=== PATIENT | female | born 1985 | race Caucasian/White ===

== ENCOUNTER 2016-07-25 16:28 | Inpatient (IN) | payer BC, OTHER ==
[~2016-07-25] VITALS: Ht 160 cm; Wt 77.1 kg
[2016-07-25] VITALS (33 sets, daily range): BP systolic 119–183; BP diastolic 74–150; PULSE 54–157; RESP 18–20; TEMP 97.7–98.6
[~2016-07-25 16:28] MED LIST: AZAT50 PO; DIPHTH/TETANUS/ACEL PERTUSSIS (BOOSTER) 0.5 ML VIAL/PFS IM ONE; MEASLES, MUMPS, RUBELLA VACCINE 0.5 ML VIAL SQ ONE; PRED10 PO; SYNT25TA
[2016-07-25] MEDS ORDERED: CITRIC ACID-SODIUM CITRATE LIQ 30 ML UDC PO SCH (17:15)
[2016-07-25] MEDS ORDERED: MINERAL OIL 10 ML VIAL TOPICAL PRN (17:15)
[2016-07-25] MEDS ORDERED: OXYTOCIN 30 UNITS-500ML PREMIX 500 ML IV ONE (17:15)
[2016-07-25] MEDS ORDERED: LIDOCAINE HCL 1% 50 ML VIAL I-DERMAL PRN (17:15)
[2016-07-25] MEDS ORDERED: LIDOCAINE HCL 1% 50 ML VIAL INFIL PRN (17:15)
[2016-07-25] MEDS ORDERED: LACTATED RINGER'S 1000 ML INJ 1,000 ML IV PRN (17:15)
[2016-07-25] MEDS ORDERED: SODIUM CHLORID 0.9% 500 ML INJ 500 ML IV PRN (17:15)
--- NOTE | 2016-07-25 17:32 | HHI.HP ---
History & Physical H&P OB ED Note (Detail) Patient Name: Zakiya Benz Unit Number: [id number] Date of : 1985 Patient Status: Admitted Inpatient Attending Doctor: Juaquin Artis MD HPI HPI Chief Complaint Contractions Date Seen: Jul 25, 2016 Time Seen: 17:00 Travel History International Travel<30 Days: No Contact w/Intl Traveler<30Days: No Known Affected Area: No History of Present Illness HPI 30-year-old 1 with an EDC of August 09 who is 37-6/7 weeks gestation and has been having contractions throughout the day which have progressed from every 13 minutes to every 4 minutes. She denies leakage of fluid, bleeding or discharge. Para: 0 : 1 History (Limited) History Past Medical History Narrative Medical [facility] Obstetric History Obstetric History Primigravida with uncomplicated care by Dr. artis O-, AST negative, RPR nonreactive, rubella immune, hepatitis B nonreactive, 1 hour 90, GBS negative Past Surgical History Narrative Surgical Bunion surgery Family History Family History: Negative Social History Alcohol Use: No Tobacco Use: No Substance Abuse: No Allergies-Medications Allergies-Medications (Allergen,Severity, Reaction): Coded Allergies: No Known Allergies (Verified , 04/20/10) Home Meds Reported Medications Levothyroxine Sodium (Synthroid)25 Mcg Tab UNKNOWN DOSE 04/20/10 Azathioprine (Imuran)50 Mg Tab25 Mg PO DAILY 04/20/10 Prednisone (Deltasone)10 Mg Tab10 Mg PO BID 04/20/10 ROS Review of Systems Except as stated in HPI: all other systems reviewed are Neg Physical Exam Physical Exam Narrative GENERAL: Well-nourished, well-developed patient. SKIN: Warm and dry. HEAD: Normocephalic and atraumatic. EYES: No scleral icterus. No injection or drainage. ENT: No nasal drainage noted. Mucous membranes pink. Airway patent. NECK: Supple, trachea midline. No JVD. CARDIOVASCULAR: Regular rate and rhythm without murmurs, gallops, or rubs. RESPIRATORY: Breath sounds equal bilaterally. No accessory muscle use. ABDOMEN/GI: Abdomen soft, non-tender, bowel sounds present, no rebound, no guarding Gravid to [-] weeks size Fundal Height: [37-] GENITOURINARY: External Genitalia: intact and normal in appearance BUS glands: [Negative-] Cervix: [-] Dilatation: [-4-5] Effacement: [-100] Station: [0-] Presentation: [-Vertex] Membranes: [intact ] Uterine Contractions: [Every 4-] FHT's: Category: [-] Baseline: [-] Reactive: [-] Variability: [-] Decels: [-] EXTREMITIES: No cyanosis or edema. BACK: Nontender without obvious deformity. No CVA tenderness. NEUROLOGICAL: Awake and alert. Motor and sensory grossly within normal limits. Five out of 5 muscle strength in all muscle groups. Normal speech. Data Data Data Orders Admit To Inpatient (07/25/16 ) Code Status (07/25/16 17:15) Vital Signs (Adult) .Per protocol (07/25/16 17:15) Heart (07/25/16 17:15) Amnioinfusion (07/25/16 17:15) Urinary Catheter Management .ONCE (07/25/16 17:15) Lactated Ringer's 1000 Ml Inj (Lr 1000 M (07/25/16 17:15) Lactated Ringer's 1000 Ml Inj (Lr 1000 M (07/25/16 17:15) Sodium Chlorid 0.9% 500 Ml Inj (Ns 500 M (07/25/16 17:15) Sodium Chlor 0.9% 1000 Ml Inj (Ns 1000 M (07/25/16 17:35) Lidocaine 1% Inj (50 Ml) (Xylocaine 1% I (07/25/16 17:15) Citric Acid-Sodium Citrate Liq (Bicitra (07/25/16 17:15) Fentanyl Inj (Fentanyl Inj) (07/25/16 17:15) Fentanyl Inj (Fentanyl Inj) (07/25/16 17:15) Complete Blood Count With Diff (07/25/16 17:15) Hold Clot (07/25/16 17:15) Abo/Rh Blood Type (07/25/16 17:15) Urinalysis - C+S If Indicated (07/25/16 17:15) Resp Oxygen Non Rebreathe Mask (07/25/16 ) ^ Epidural / Intrathecal Infus (07/25/16 17:15) Oxytocin 30 Units-500ml Premix (Pitocin (07/25/16 17:15) Lidocaine 1% Inj (50 Ml) (Xylocaine 1% I (07/25/16 17:15) Light Mineral Oil (Muri-Lube Oil) (07/25/16 17:15) Inpatient Certification (07/25/16 ) Ob (2e) Additional Admit Info (07/25/16 17:19) MDM MDM Medical Record Reviewed: Yes Narrative Course / MDM Assessment: Primigravida at 37-6/7 weeks' gestation in early active labor Plan: Admit for labor management. Mild blood pressure elevation in triage possibly related to contraction activity. Denilson Smyth MD Jul 25, 2016 17:29 Denilson Smyth MD Jul 25, 2016 17:32
[2016-07-25] MEDS ORDERED: SODIUM CHLOR 0.9% 1000 ML INJ 1,000 ML IV PRN (17:35)
[2016-07-25 18:08] LABS: AUTOMATED NEUTROPHIL # 12.8 TH/MM3 (1.8-7.7); BASOPHIL % 0.2 % (0.0-2.0); EOSINOPHIL % 0.1 % (0.0-4.0); HEMATOCRIT 34.6 % (35.0-46.0); HEMO FLAGS DIFF FINAL; LYMPHOCYTE # 1.9 TH/MM3 (1.0-4.8); MEAN CELL VOLUME 86.2 FL (80.0-100.0); MEAN CORPUSCULAR HEMOGLOBIN 27.7 PG (27.0-34.0); MEAN CORPUSCULAR HGB CONC 32.1 % (32.0-36.0); MONO % 5.1 % (0.0-8.0); NEUT % 82.6 % (16.0-70.0); PLATELET COUNT 104 TH/MM3 (150-450); RED BLOOD COUNT 4.02 MIL/MM3 (4.00-5.30); RED CELL DISTRIBUTION WIDTH 13.2 % (11.6-17.2); WHITE BLOOD COUNT 15.5 TH/MM3 (4.0-11.0)
[2016-07-25 18:26] LABS: BACTERIA, URINE RARE /hpf; BLOOD, URINE SMALL (NEG); COMMENT (UR) CULT NOT INDICATED; CULTURE IF INDICATED CULT NOT INDICATED; GLUCOSE,URINE NEG (NEG); KETONE, URINE NEG (NEG); MUCUS URINE FEW /lpf (OCC); NITRITE,URINE NEG (NEG); SQUAMOUS EPITHELIAL CELL URINE 3 /hpf (0-5); URINE COLOR LIGHT-YELLOW (YELLW/STRAW)
[2016-07-25 19:49] LABS: ANION GAP 9 MEQ/L (5-15); AST (GOT) 22 U/L (15-37); BICARBONATE 21.1 MEQ/L (21.0-32.0); BLOOD UREA NITROGEN 11 MG/DL (7-18); CHLORIDE 107 MEQ/L (98-107); GLOMERULAR FILTRATION RATE 83 ML/MIN (>89); POTASSIUM 4.1 MEQ/L (3.5-5.1); SODIUM (NA) 137 MEQ/L (136-145)
[2016-07-25] MEDS ORDERED: MAGNESIUM SULFATE 4 GM PREMIX 100 ML ONE (19:50)
[2016-07-25] MEDS ORDERED: MAGNESIUM SULFATE 40 GM PREMIX 1,000 ML ONE (19:50)
[2016-07-25 19:52] LABS: ALKALINE PHOSPHATASE 181 U/L (45-117); ALT (GPT) 16 U/L (10-53); TOTAL BILIRUBIN ADULT 0.4 MG/DL (0.2-1.0)
[2016-07-25] MEDS ORDERED: NIFEdipine 10 MG CAP PO SCH (20:25)
[2016-07-25] MEDS ORDERED: NIFEdipine 10 MG CAP ONE (20:29)
[2016-07-25] MEDS: MAGNESIUM SULFATE 40 GM PREMIX 1,000 ML IV SCH (20:44)
[2016-07-25] MEDS: LACTATED RINGER'S 1000 ML INJ 1,000 ML IV SCH (20:44)
[2016-07-25] MEDS ORDERED: CALCIUM GLUCONATE 10% 1 GM/10 ML VIAL IV PRN (20:45)
[2016-07-25] MEDS ORDERED: oxyCODONE/ACETAMINOPHEN 5 MG/325 MG TAB PO PRN (20:45)
[2016-07-25] MEDS ORDERED: DOCUSATE SODIUM 50 MG/SENNA 8.6 MG TAB PO PRN (20:45)
[2016-07-25] MEDS ORDERED: MAGNESIUM SULFATE 4 GM PREMIX 100 ML IV ONE (20:45)
[2016-07-25] MEDS ORDERED: BENZOCAINE 20% TOPICAL SPRAY 60 ML CAN TOPICAL PRN (20:45)
[2016-07-25] MEDS ORDERED: ZOLPIDEM TARTRATE 5 MG TAB PO PRN (20:45)
[2016-07-25] MEDS ORDERED: SODIUM CHLORIDE 0.9% FLUSH 10 ML FLUSH IV FLUSH PRN ×2 (20:45)
[2016-07-25] MEDS ORDERED: ALUMINUM/MAGNESIUM/SIMETH 30 ML CUP PO PRN (20:45)
[2016-07-25] MEDS ORDERED: ONDANSETRON ODT 4 MG TAB PO PRN (20:45)
--- NOTE | 2016-07-25 20:46 | PD.OB.DELI ---
Anesthesia: None Episiotomy: None Vaginal Delivery: Normal, Spontaneous Presentation: Occiput anterior Nuchal Cord: None Delayed cord clamping (45 sec): Yes : Male One Minute : 9 Five Minute : 9 Weight: 6#2oz Placenta: Spontaneous delivery, Intact, 3 vessel cord Laceration: Vaginal laceration, 2 deg Repair: Vicryl running Additional Information EBL 200cc Denilson Smyth MD Jul 25, 2016 20:46
[2016-07-25] MEDS: SODIUM CHLORIDE 0.9% FLUSH 10 ML FLUSH IV FLUSH SCH (21:00)
[2016-07-25] MEDS ORDERED: SODIUM CHLORIDE 0.9% FLUSH 10 ML FLUSH IV FLUSH SCH (21:00)
[2016-07-26] VITALS (78 sets, daily range): BP systolic 114–170; BP diastolic 72–127; PULSE 64–94; RESP 16–20; TEMP 96.9–98.3
[2016-07-26] MEDS: ACETAMINOPHEN 325 MG TAB PO PRN ×2 (00:06→18:53)
[2016-07-26] MEDS: IBUPROFEN 600 MG TAB PO PRN (00:06)
[2016-07-26] MEDS: oxyCODONE/ACETAMINOPHEN 5 MG/325 MG TAB PO PRN (03:12)
[2016-07-26] MEDS: LACTATED RINGER'S 1000 ML INJ 1,000 ML IV SCH ×5 (04:44→20:44)
[2016-07-26 06:09] LABS: HEMATOCRIT 30.9 % (35.0-46.0); MEAN CELL VOLUME 86.3 FL (80.0-100.0); MEAN CORPUSCULAR HEMOGLOBIN 28.2 PG (27.0-34.0); MEAN CORPUSCULAR HGB CONC 32.7 % (32.0-36.0); PLATELET COUNT 91 TH/MM3 (150-450); RED BLOOD COUNT 3.58 MIL/MM3 (4.00-5.30); RED CELL DISTRIBUTION WIDTH 13.5 % (11.6-17.2); WHITE BLOOD COUNT 17.5 TH/MM3 (4.0-11.0)
[2016-07-26 06:14] LABS: REVIEW FLAG FINAL
[2016-07-26 06:25] LABS: ALKALINE PHOSPHATASE 154 U/L (45-117); ALT (GPT) 15 U/L (10-53); ANION GAP 5 MEQ/L (5-15); AST (GOT) 27 U/L (15-37); BICARBONATE 27.6 MEQ/L (21.0-32.0); BLOOD UREA NITROGEN 8 MG/DL (7-18); CHLORIDE 104 MEQ/L (98-107); GLOMERULAR FILTRATION RATE 89 ML/MIN (>89); POTASSIUM 4.1 MEQ/L (3.5-5.1); SODIUM (NA) 137 MEQ/L (136-145); TOTAL BILIRUBIN ADULT 0.3 MG/DL (0.2-1.0); URIC ACID 4.9 MG/DL (2.6-6.0)
[2016-07-26] MEDS ORDERED: KETOROLAC TROMETHAMINE 30 MG/ML (IVP) VIAL IV PUSH PRN (08:00)
[2016-07-26] MEDS ORDERED: MISOPROSTOL 200 MCG TAB ONE (08:46)
[2016-07-26] MEDS ORDERED: METHYLERGONOVINE MALEATE 0.2 MG/ML VIAL ONE (08:46)
[2016-07-26] MEDS ORDERED: OXYTOCIN 10 UNIT/ML AMP ONE ×2 (08:47→19:21)
[2016-07-26] MEDS ORDERED: CARBOPROST TROMETHAMINE 250 MCG/ML VIAL ONE (08:47)
[2016-07-26] MEDS: SODIUM CHLORIDE 0.9% FLUSH 10 ML FLUSH IV FLUSH SCH ×2 (09:00→21:00)
[2016-07-26] MEDS: LABETALOL HCL 100 MG TAB PO SCH ×2 (10:23→21:33)
[2016-07-26 11:36] LABS: REVIEW FLAG FINAL
[2016-07-26] MEDS ORDERED: ACETAMINOPHEN 1000 MG/100 ML VIAL IV ONE (14:00)
[2016-07-26] MEDS: MAGNESIUM SULFATE 40 GM PREMIX 1,000 ML IV SCH (14:06)
[2016-07-26] MEDS ORDERED: CARBOPROST TROMETHAMINE 250 MCG/ML VIAL IM ONE (15:00)
[2016-07-26] MEDS ORDERED: OXYTOCIN INJ 20 UNITS in LACTATED RINGER'S 1000 ML INJ 1,000 ML IV SCH ×2 (15:00→15:15)
[2016-07-26] MEDS: WITCH HAZEL 50%/GLYCERIN 12.5% 40 PAD JAR TOPICAL PRN (22:42)
[2016-07-27 00:15] VITALS: BP 123/76; PULSE 88; RESP 18
[2016-07-27] MEDS: IBUPROFEN 600 MG TAB PO PRN ×2 (00:21→09:02)
[2016-07-27] MEDS: oxyCODONE/ACETAMINOPHEN 5 MG/325 MG TAB PO PRN (00:21)
[2016-07-27] MEDS: LABETALOL HCL 100 MG TAB PO SCH ×2 (09:02→21:38)
[2016-07-27] MEDS: METHYLERGONOVINE MALEATE 0.2 MG TAB PO SCH ×3 (11:44→23:20)
[2016-07-27 19:45] VITALS: BP 151/86; PULSE 76; RESP 16; TEMP 99.1
[2016-07-27 23:28] VITALS: BP 109/84; PULSE 82; RESP 16; TEMP 98.3
[2016-07-28] VITALS (8 sets, daily range): BP systolic 128–171; BP diastolic 79–107; PULSE 83–111; RESP 16–18; TEMP 98.2–98.5
[2016-07-28] MEDS: METHYLERGONOVINE MALEATE 0.2 MG TAB PO SCH ×2 (06:30→13:48)
[2016-07-28] MEDS: LABETALOL HCL 100 MG TAB PO SCH (08:33)
[2016-07-28] MEDS ORDERED: NIFEdipine 10 MG CAP PO ONE (09:00)
--- NOTE | 2016-07-28 12:30 | HHI.DCPOC ---
Discharge Care Plan Your Health Problems Are: Vaginal delivery Report Symptoms to Your Doctor -Temperate above 100.5 degrees -Redness, of incision or excessive or foul smelling drainage -Unusual pain or calf pain -Increased vaginal bleeding -Painful or difficulty urinating -Feelings of extreme sadness or anxiety after 2 weeks Goals to Promote Your Health * To prevent worsening of your condition and complications * To maintain your health at the optimal level Directions to Meet Your Goals Take your medications as prescribed Follow your dietary instruction Follow activity as directed Ensure plenty of rest for recovery Drink fluids for hydration Keep your appointments as scheduled Take your immunizations and boosters as scheduled If your symptoms worsen call your PCP, if no PCP go to Urgent Care Center or Emergency Room Smoking is Dangerous to Your Health. Avoid second hand smoke Call the 24-hour crisis hotline for domestic abuse at Desi Souza MD Jul 28, 2016 12:30
[2016-07-28] MEDS ORDERED: NIFE1TAB86 PO (14:10)
[2016-07-28] MEDS: WITCH HAZEL 50%/GLYCERIN 12.5% 40 PAD JAR TOPICAL PRN (14:26)
[2016-07-28] MEDS ORDERED: NIFEdipine 30 MG SUSTAINED RELEASE TAB PO ONE (15:00)
--- NOTE | 2016-07-28 18:51 | HHI.OB ---
Subjective Post Day: 3 Remarks Patient has hypertension residual with preeclampsia. she was set for DC home but had BP 171/100 and 150/100 despite procardia 30 mg Objective Vitals/I&O Vital Signs Date Time Temp Pulse Resp B/P Pulse Ox O2 Delivery O2 Flow Rate FiO2 07/28/16 17:05 88 151/100 07/28/16 16:10 171/106 07/28/16 16:10 83 07/28/16 15:50 98 161/96 07/28/16 10:00 88 149/89 07/28/16 04:30 98.5 93 16 128/79 07/27/16 23:28 98.3 07/27/16 23:28 82 16 109/84 07/27/16 19:45 151/86 07/27/16 19:45 99.1 76 16 Objective Remarks GENERAL: Well-nourished, well-developed patient. . ABDOMEN/GI: Abdomen soft, non-tender. Fundus: Firm, non-tender at umbilicus. GENITOURINARY: Light to moderate bleeding. EXTREMITIES: No cyanosis or edema, non-tender, without signs of DVT. Medications and IVs Current Medications Medications (Trade) Dose Ordered Sig/Baltazar Route Start Time Stop Time Status Last Admin Lactated Ringer's 1,000 ml @ 125 mls/hr Q8H IV 07/25/16 17:15 Lactated Ringer's 1,000 ml @ 3,000 mls/hr Q20M PRN IV 07/25/16 17:15 07/25/16 21:13 Sodium Chloride 500 ml @ 1,000 mls/hr ONCE PRN IV 07/25/16 17:15 (NS 1000 ml Inj) 1,000 ml @ 100 mls/hr Q10H PRN IV 07/25/16 17:35 (fentaNYL INJ) 50 mcg Q1H PRN IV PUSH 07/25/16 17:15 (fentaNYL INJ) 100 mcg Q1H PRN IV PUSH 07/25/16 17:15 (Muri-Lube Oil) 10 ml UNSCH PRN TOPICAL 07/25/16 17:15 (NS Flush) 2 ml BID IV FLUSH 07/25/16 21:00 07/25/16 21:00 (NS Flush) 2 ml UNSCH PRN IV FLUSH 07/25/16 20:45 (Tylenol) 650 mg Q4H PRN PO 07/25/16 20:45 07/26/16 18:53 (Motrin) 600 mg Q6H PRN PO 07/25/16 20:45 07/27/16 09:02 (Percocet 5-325 Mg) 1 tab Q4H PRN PO 07/25/16 20:45 07/27/16 00:21 (Percocet 5-325 Mg) 2 tab Q4H PRN PO 07/25/16 20:45 (Americaine 20% Top Spr) 1 spray Q4H PRN TOPICAL 07/25/16 20:45 07/26/16 22:42 (Tucks Pads) 1 applic QID PRN TOPICAL 07/25/16 20:45 07/28/16 14:26 (Kath-Colace) 2 tab Q12H PRN PO 07/25/16 20:45 07/27/16 09:02 (Ambien) 5 mg HS PRN PO 07/25/16 20:45 (Mag-Al Plus Susp Liq) 15 ml Q8H PRN PO 07/25/16 20:45 Ondansetron HCl 4 mg 4 mg Q6H PRN PO 07/25/16 20:45 Lactated Ringer's 1,000 ml @ 125 mls/hr Q8H IV 07/25/16 20:44 07/25/16 20:44 (Magnesium Sulfate 40 Gm Premix) 1,000 ml @ 25 mls/hr Q24H IV 07/25/16 20:44 07/26/16 14:06 Ketorolac Tromethamine 30 mg 30 mg Q6H PRN IV PUSH 07/26/16 08:00 07/31/16 07:59 Oxytocin 20 units/ Lactated Ringer's 1,002 ml @ 0 mls/hr Q0M IV 07/26/16 15:00 (Pitocin Inj/Lr 1000 ml Inj) 1,002 ml @ 75 mls/hr [id number] IV 07/26/16 15:15 07/26/16 19:45 (Procardia) 20 mg Q8HR PO 07/28/16 22:00 Assessment/Plan Problem List: (1) Hypertension complicating (2) Pre-eclampsia affecting , antepartum Discharge Planning Hold Nv home patient needs BP meds. will adjust procardia 20 mg Q8 Juaquin Lema MD Jul 28, 2016 18:51
[2016-07-28] MEDS: NIFEdipine 10 MG CAP PO SCH (21:06)
[2016-07-28] MEDS ORDERED: NIFEdipine 10 MG CAP PO SCH (22:00)
[2016-07-29 03:50] VITALS: BP 132/97; PULSE 101; RESP 16; TEMP 99
[2016-07-29] MEDS: ACETAMINOPHEN 325 MG TAB PO PRN ×2 (03:51→10:17)
[2016-07-29] MEDS: NIFEdipine 10 MG CAP PO SCH ×2 (05:04→13:08)
[2016-07-29] MEDS: IBUPROFEN 600 MG TAB PO PRN (05:11)
--- NOTE | 2016-07-29 12:58 | HHI.OB ---
Subjective Post Day: 4 Remarks doing well dc home Objective Vitals/I&O Vital Signs Date Time Temp Pulse Resp B/P Pulse Ox O2 Delivery O2 Flow Rate FiO2 07/29/16 03:50 99.0 101 16 132/97 07/28/16 22:00 111 07/28/16 22:00 136/87 07/28/16 19:30 160/98 07/28/16 19:00 109 169/107 07/28/16 19:00 98.2 18 07/28/16 17:05 88 151/100 07/28/16 16:10 171/106 07/28/16 16:10 83 07/28/16 15:50 98 161/96 Objective Remarks GENERAL: Well-nourished, well-developed patient. . ABDOMEN/GI: Abdomen soft, non-tender. Fundus: Firm, non-tender at umbilicus. GENITOURINARY: Light to moderate bleeding. EXTREMITIES: No cyanosis or edema, non-tender, without signs of DVT. Medications and IVs Current Medications Medications (Trade) Dose Ordered Sig/Baltazar Route Start Time Stop Time Status Last Admin Lactated Ringer's 1,000 ml @ 125 mls/hr Q8H IV 07/25/16 17:15 Lactated Ringer's 1,000 ml @ 3,000 mls/hr Q20M PRN IV 07/25/16 17:15 07/25/16 21:13 Sodium Chloride 500 ml @ 1,000 mls/hr ONCE PRN IV 07/25/16 17:15 (NS 1000 ml Inj) 1,000 ml @ 100 mls/hr Q10H PRN IV 07/25/16 17:35 (fentaNYL INJ) 50 mcg Q1H PRN IV PUSH 07/25/16 17:15 (fentaNYL INJ) 100 mcg Q1H PRN IV PUSH 07/25/16 17:15 (Muri-Lube Oil) 10 ml UNSCH PRN TOPICAL 07/25/16 17:15 (NS Flush) 2 ml BID IV FLUSH 07/25/16 21:00 07/25/16 21:00 (NS Flush) 2 ml UNSCH PRN IV FLUSH 07/25/16 20:45 (Tylenol) 650 mg Q4H PRN PO 07/25/16 20:45 07/29/16 10:17 (Motrin) 600 mg Q6H PRN PO 07/25/16 20:45 07/29/16 05:11 (Percocet 5-325 Mg) 1 tab Q4H PRN PO 07/25/16 20:45 07/27/16 00:21 (Percocet 5-325 Mg) 2 tab Q4H PRN PO 07/25/16 20:45 (Americaine 20% Top Spr) 1 spray Q4H PRN TOPICAL 07/25/16 20:45 07/26/16 22:42 (Tucks Pads) 1 applic QID PRN TOPICAL 07/25/16 20:45 07/28/16 14:26 (Kath-Colace) 2 tab Q12H PRN PO 07/25/16 20:45 07/27/16 09:02 (Ambien) 5 mg HS PRN PO 07/25/16 20:45 (Mag-Al Plus Susp Liq) 15 ml Q8H PRN PO 07/25/16 20:45 Ondansetron HCl 4 mg 4 mg Q6H PRN PO 07/25/16 20:45 Lactated Ringer's 1,000 ml @ 125 mls/hr Q8H IV 07/25/16 20:44 07/25/16 20:44 (Magnesium Sulfate 40 Gm Premix) 1,000 ml @ 25 mls/hr Q24H IV 07/25/16 20:44 07/26/16 14:06 Ketorolac Tromethamine 30 mg 30 mg Q6H PRN IV PUSH 07/26/16 08:00 07/31/16 07:59 Oxytocin 20 units/ Lactated Ringer's 1,002 ml @ 0 mls/hr Q0M IV 07/26/16 15:00 (Pitocin Inj/Lr 1000 ml Inj) 1,002 ml @ 75 mls/hr [id number] IV 07/26/16 15:15 07/26/16 19:45 (Procardia) 20 mg Q8H PO 07/28/16 21:00 07/29/16 05:04 Assessment/Plan Problem List: (1) Hypertension complicating (2) Pre-eclampsia affecting , antepartum Discharge Planning BP meds. now procardia 20 mg Q8, DC home BP improved Juaquin Lema MD Jul 29, 2016 12:58
[2016-07-29] MEDS ORDERED: NIFE10 PO (13:00)
== END 2016-07-29 14:48 | disposition home or self-care (01) | DRG 775 ==
LOC: HOBED 16:28 → H2EB 17:21 → H2EA 18:04 → H2EB 23:26 → H1EA 07-26 21:05
PROVIDERS: ADMIT Obstetrics & Gynecology; ATTEND Obstetrics & Gynecology
PROC: 10E0XZZ Delivery of Products of Conception, External Approach (ICD-10-PCS; principal; 2016-07-25)
PROC: 0KQM0ZZ Repair Perineum Muscle, Open Approach (ICD-10-PCS; 2016-07-25)
DX: O71.4 Obstetric high vaginal laceration alone (principal); Z37.0 Single live birth; O14.94 Unspecified pre-eclampsia, complicating childbirth; Z3A.37 37 weeks gestation of pregnancy
CPT/HCPCS: 80053; 81001; 83735; 84550; 85014; 85018; 85025; 85027; 85461; 86850; 86900; 86901; 90384; 90715; 99285; J2210; J2590; J2790; J3475; J7120